=== PATIENT | female | born 1995 | race Caucasian/White ===

== ENCOUNTER 2022-08-23 10:33 | Emergency (ER) | payer MEDICAID ==
[~2022-08-23] VITALS: Ht 165.1 cm; Wt 56.7 kg
[2022-08-23 10:37] VITALS: BP 142/91
== END 2022-08-23 11:22 | disposition home or self-care (01) ==
LOC: ER 10:33
DX: L84 Corns and callosities (principal)
CPT/HCPCS: 99283

== ENCOUNTER → 2023-04-24 | Outpatient (CLI) | payer OTHER | END | disposition home or self-care (01) | LOC: LAB 08:09 → LAB SHORT 08:09 | DX: R87.619 Unspecified abnormal cytological findings in specimens from cervix uteri (principal) | CPT/HCPCS: 88305 ==

== ENCOUNTER → 2023-04-24 | Outpatient (CLI) | payer OTHER ==
[2023-04-25 10:49] LABS: Candida species (DNA Probe) Negative (NEGATIVE); T. vaginalis (DNA Probe) Negative (NEGATIVE)
[2023-04-25 10:50] LABS: G. vaginalis (DNA Probe) Positive (NEGATIVE)
[2023-04-27 18:16] LABS: APTIMA MEDIA TYPE Unisex Swab; C. TRACHOMATIS BY TMA Negative (Negative); N. GONORRHOEAE BY TMA Negative (Negative); SPECIMEN SOURCE Cervical/Vag
== END | disposition home or self-care (01) ==
LOC: LAB SHORT 16:36 → LAB 16:36
PROVIDERS: Obstetrics & Gynecology
DX: Z11.3 Encounter for screening for infections with a predominantly sexual mode of transmission (principal); N76.0 Acute vaginitis
CPT/HCPCS: 87480; 87491; 87510; 87591; 87660

== ENCOUNTER → 2024-10-07 | Outpatient (CLI) | payer OTHER ==
[2024-10-08 07:53] LABS: Bacterial Vaginosis PCR Negative (NEGATIVE); Candida Group, PCR NOT DETECTED (NOT DETECT); Candida glabrata-krusei, PCR NOT DETECTED (NOT DETECT)
[2024-10-08 08:20] LABS: Chlamydia Trachomatis Vaginal NOT DETECTED (NOT DETECT); Neisseria Gonorrhoea Vaginal NOT DETECTED (NOT DETECT)
[2024-10-14 08:00] LABS: HPV HIGH RISK BY TMA Not Detected; HPV SOURCE Cervical
== END ==
LOC: LAB 17:29 → LAB SHORT 17:29
PROVIDERS: Obstetrics & Gynecology
DX: Z01.419 Encounter for gynecological examination (general) (routine) without abnormal findings (principal); Z11.3 Encounter for screening for infections with a predominantly sexual mode of transmission
CPT/HCPCS: 81515; 87491; 87591; 87624; G0123